=== PATIENT | female | born 1975 | race Caucasian/White ===

== ENCOUNTER 2021-02-05 11:01 | Day surgery (SDC) | payer OTHER, SELFPAY ==
[~2021-02-05] VITALS: Ht 147.3 cm; Wt 64.9 kg
[2021-02-05] MEDS ORDERED: fentaNYL citrate 0.05 MG/ML VIAL ONE (12:18)
[2021-02-05] MEDS ORDERED: MIDAZOLAM 5 MG/5 ML VIAL ONE (12:18)
[2021-02-05] MEDS ORDERED: LIDOCAINE 2% 100 MG/5 ML UJET TP ONE ×2 (12:18→13:20)
[2021-02-05] MEDS ORDERED: MIDAZOLAM 2 MG/2 ML VIAL IVP ONE (13:20)
[2021-02-05] MEDS ORDERED: fentaNYL citrate 0.05 MG/ML VIAL IVP ONE (13:20)
== END 2021-02-05 13:55 | disposition home or self-care (01) ==
LOC: MDS 11:01 → MFCC 11:01 → MDS 13:55
PROVIDERS: ATTEND Internal Medicine Gastroenterology
DX: D50.9 Iron deficiency anemia, unspecified (principal); R14.0 Abdominal distension (gaseous); Z79.899 Other long term (current) drug therapy; Z20.822 Contact with and (suspected) exposure to COVID-19
CPT/HCPCS: 36415; 43239; 45378; 81025; 86677; 87426; J2250; J3010